=== PATIENT | female | born 1965 | race Caucasian/White ===

== ENCOUNTER 2017-07-01 06:38 | Emergency (ER) | payer OTHER ==
[~2017-07-01] VITALS: Ht 160 cm; Wt 65.0 kg
[~2017-07-01 06:38] MED LIST: CLON0.5T PO; LEVO100T5 PO
[2017-07-01 06:41] VITALS: BP 116/77
[2017-07-01] MEDS ORDERED: METOCLOPRAMIDE 5 MG/ML, 2ML ONE (07:07)
[2017-07-01] MEDS ORDERED: HYDROmorphone 2 MG/ML, 1ML ONE (07:07)
[2017-07-01] MEDS ORDERED: HYDROcodone/APAP 5/325 TABLET ONE (07:27)
[2017-07-01] MEDS ORDERED: METHOCARBAMOL 750 MG TABLET ONE (07:27)
[2017-07-01] MEDS ORDERED: KETOROLAC 30 MG/1 ML ONE (07:27)
[2017-07-01] MEDS ORDERED: METHOCARBAMOL 750 MG TABLET PO ONE (07:30)
[2017-07-01] MEDS ORDERED: KETOROLAC 30 MG/1 ML IM ONE (07:30)
[2017-07-01] MEDS ORDERED: HYDROcodone/APAP 5/325 TABLET PO ONE (07:30)
== END 2017-07-01 08:44 | disposition home or self-care (01) ==
LOC: ED 08:05
DX: M51.36 Other intervertebral disc degeneration, lumbar region (principal); M54.42 Lumbago with sciatica, left side; G89.29 Other chronic pain; M54.5 Low back pain; F17.210 Nicotine dependence, cigarettes, uncomplicated; E03.9 Hypothyroidism, unspecified
CPT/HCPCS: 72110; 96372; 99284; J1885

== ENCOUNTER 2017-10-12 05:13 | Inpatient (IN) | payer OTHER ==
[2017-10-10 14:37] LABS: BASOPHILS # (AUTO) 0.02 x10^3/uL (0-0.1); BASOPHILS % (AUTO) 0 % (0-1); LYMPHOCYTES % (AUTO) 43 % (22-44); MD NO; NEUTROPHILS % (AUTO) 47 % (42-75)
[2017-10-10 14:43] LABS: INTERNATIONAL NORMALIZED RATIO 0.93 (0.93-1.1); PROTHROMBIN TIME 9.7 Seconds (9.6-11.5)
[2017-10-10 14:48] LABS: EOSINOPHILS # (AUTO) 0.06 x10^3/uL (0-0.4); EOSINOPHILS % (AUTO) 1 % (1-7); LYMPHOCYTES # (AUTO) 2.96 x10^3/uL (1-3.4); MEAN CORPUSCULAR HGB CONC 33.4 g/dL (32.4-35.8); MEAN CORPUSCULAR VOLUME 89.8 fL (80-100); MEAN PLATELET VOLUME 8.3 fL (7.4-10.4); MONOCYTES # (AUTO) 0.67 x10^3/uL (0.2-0.8); MONOCYTES % (AUTO) 10 % (2-9); NEUTROPHILS # (AUTO) 3.24 x10^3/uL (1.8-6.8); PLATELET COUNT 195 x10^3/uL (130-400); RED BLOOD COUNT 5.16 x10^6/uL (3.82-5.3); RED CELL DISTRIBUTION WIDTH 13.6 % (9.6-15.2)
[2017-10-10 14:54] LABS: ALBUMIN 4.2 g/dL (3.4-5.0); ANION GAP 7 mmol/L (5-15); CALCIUM 9.6 mg/dL (8.5-10.1); CHLORIDE 108 mmol/L (98-107)
[2017-10-10 14:57] LABS: ALANINE AMINOTRANSFERASE 23 U/L (12-78); ALKALINE PHOSPHATASE 86 U/L (45-117); BILIRUBIN,TOTAL 0.7 mg/dL (0.2-1.0); CREATININE 0.85 mg/dL (0.55-1.02)
[~2017-10-12] VITALS: Ht 160 cm; Wt 74.3 kg
[~2017-10-12 05:13] MED LIST changes: +ACET-1600 PO; +HYDR-3240 PO; +LEVO200T5 PO; +MULT-658 PO
[2017-10-12] MEDS ORDERED: HEPARIN 1,000 UNITS/ML, 30ML ONE (06:42)
[2017-10-12] MEDS ORDERED: KETAMINE 10 MG/ML, 20ML ONE (06:53)
[2017-10-12] MEDS ORDERED: MIDAZOLAM 1 MG/ML, 2ML ONE (06:53)
[2017-10-12] MEDS ORDERED: FENTANYL PF 250 MCG/5ML ONE (06:54)
[2017-10-12] MEDS ORDERED: PROPOFOL 150 ML ONE (06:56)
[2017-10-12] MEDS ORDERED: THROMBIN 20,000 UNIT VIAL TP ONE ×2 (06:58→08:14)
[2017-10-12] MEDS ORDERED: BACITRACIN OINT 500U/GM, 15 GM ONE (06:58)
[2017-10-12] MEDS ORDERED: BUPIVACAINE/PF 0.5% ONE (06:58)
[2017-10-12] MEDS ORDERED: BACITRACIN 50,000 UNIT ONE (06:59)
[2017-10-12] MEDS ORDERED: EPINEPHRINE 1 MG/ML, 1ML ONE (07:00)
[2017-10-12] MEDS ORDERED: REMIFENTANIL 2 MG ONE (07:23)
[2017-10-12] MEDS ORDERED: REMIFENTANIL 1 MG ONE (07:23)
[2017-10-12] MEDS ORDERED: DEXAMETHASONE 4 MG/ML, 1ML ONE (07:28)
[2017-10-12] MEDS ORDERED: ROCURONIUM 10 MG/ML,10ML ONE (07:28)
[2017-10-12] MEDS ORDERED: LIDOCAINE-MPF 1%, 5ML ONE (07:28)
[2017-10-12] MEDS ORDERED: CEFAZOLIN 1,000 MG ONE (07:28)
[2017-10-12] MEDS ORDERED: SUCCINYLCHOLINE 20 MG/ML, 10ML ONE (07:28)
[2017-10-12] MEDS ORDERED: BUPIVACAINE/PF-EPI 0.5% 1:200K INFIL ONE (08:13)
[2017-10-12] MEDS ORDERED: BACITRACIN 50,000 UNIT IM ONE (08:15)
[2017-10-12] MEDS ORDERED: OXYcodone 5 MG/5 ML ORAL.SOL UDC PO PRN (09:00)
[2017-10-12] MEDS ORDERED: ALBUTEROL SULFATE 2.5 MG/3 ML NPPB PRN (09:00)
[2017-10-12] MEDS ORDERED: morphine SULFATE 10 MG/ML, 1ML IV PRN (09:00)
[2017-10-12] MEDS ORDERED: ACETAMINOPHEN 325 MG TABLET PO PRN (09:00)
[2017-10-12] MEDS ORDERED: KETOROLAC 30 MG/1 ML IV PRN (09:00)
[2017-10-12] MEDS ORDERED: MEPERIDINE/PF 25MG/0.5ML IVPush PRN (09:00)
[2017-10-12] MEDS ORDERED: PROMETHAZINE 25 MG/ML, 1ML IV PRN (09:00)
[2017-10-12] MEDS ORDERED: METOCLOPRAMIDE 5 MG/ML, 2ML IV PRN (09:00)
[2017-10-12] MEDS ORDERED: DIAZEPAM 5 MG/ML, 2ML IVPush PRN (09:00)
[2017-10-12] MEDS ORDERED: FENTANYL PF 100 MCG/2ML ONE (10:42)
[2017-10-12] MEDS ORDERED: OXYcodone 5 MG/5 ML ORAL.SOL UDC ONE (10:43)
[2017-10-12] MEDS: FENTANYL PF 100 MCG/2ML IV PRN ×2 (11:00→11:20)
[2017-10-12] MEDS ORDERED: MORPHINE SULFATE 4 MG/ML, 1ML ONE (11:26)
[2017-10-12] MEDS ORDERED: LABETALOL 5MG/ML, 20ML IV PRN (13:00)
[2017-10-12] MEDS ORDERED: DIPHENHYDRAMINE 50 MG CAPSULE PO PRN (13:00)
[2017-10-12] MEDS ORDERED: DIPHENHYDRAMINE 50 MG/ML, 1ML IM PRN (13:00)
[2017-10-12] MEDS ORDERED: BISACODYL 10 MG SUPP PR PRN (13:00)
[2017-10-12] MEDS ORDERED: HYDROcodone/APAP 5/325 TABLET PO PRN (13:00)
[2017-10-12] MEDS ORDERED: METHOCARBAMOL 1,000 MG in DEXTROSE 5% 100 ML IV ONE (13:00)
[2017-10-12] MEDS ORDERED: PROMETHAZINE 25 MG/ML, 1ML IM PRN (13:00)
[2017-10-12] MEDS ORDERED: MAGNESIUM HYDROXIDE 8%, 30ML UDC PO PRN (13:00)
[2017-10-12] MEDS ORDERED: DIPHENHYDRAMINE 50 MG/ML, 1ML IVPush PRN (13:00)
[2017-10-12] MEDS ORDERED: ONDANSETRON 2MG/ML, 2ML IV PRN (13:00)
[2017-10-12] MEDS ORDERED: MORPHINE SULFATE 4 MG/ML, 1ML IV PRN (13:30)
[2017-10-12] MEDS: NS + 20MEQ KCL 1,000 ML IV SCH (15:01)
[2017-10-12] MEDS: CEFAZOLIN PMX 1GM/50ML 50 ML IVPB SCH (16:01)
[2017-10-12 16:30] VITALS: BP 121/78
[2017-10-12] MEDS ORDERED: ZOLPIDEM 5MG TABLET PO PRN (21:00)
[2017-10-12] MEDS: ONDANSETRON ODT 4 MG PO PRN (21:03)
[2017-10-12 21:11] VITALS: BP 101/68
[2017-10-12] MEDS: METHOCARBAMOL 750 MG in DEXTROSE 5% 100 ML IV SCH (23:09)
[2017-10-13] MEDS: CEFAZOLIN PMX 1GM/50ML 50 ML IVPB SCH
[2017-10-13 00:05] VITALS: BP 97/53
[2017-10-13] MEDS ORDERED: 0.9 % SODIUM CHLORIDE 10 ML VIAL IV ONE (01:00)
[2017-10-13] MEDS: NS + 20MEQ KCL 1,000 ML IV SCH ×2 (01:03→14:09)
[2017-10-13 01:31] LABS: ANION GAP 8 mmol/L (5-15); CALCIUM 8.2 mg/dL (8.5-10.1); CHLORIDE 111 mmol/L (98-107); CREATININE 0.63 mg/dL (0.55-1.02)
[2017-10-13 02:47] LABS: BASOPHILS # (AUTO) 0.04 x10^3/uL (0-0.1); BASOPHILS % (AUTO) 0 % (0-1); EOSINOPHILS % (AUTO) 0 % (1-7); LYMPHOCYTES # (AUTO) 1.03 x10^3/uL (1-3.4); LYMPHOCYTES % (AUTO) 11 % (22-44); MD NO; MEAN CORPUSCULAR HEMOGLOBIN 29.1 pg (27.0-34.8); MEAN CORPUSCULAR HGB CONC 32.6 g/dL (32.4-35.8); MEAN CORPUSCULAR VOLUME 89.3 fL (80-100); MEAN PLATELET VOLUME 8.2 fL (7.4-10.4); MONOCYTES # (AUTO) 0.74 x10^3/uL (0.2-0.8); MONOCYTES % (AUTO) 8 % (2-9); NEUTROPHILS # (AUTO) 8.03 x10^3/uL (1.8-6.8); NEUTROPHILS % (AUTO) 82 % (42-75); PLATELET COUNT 177 x10^3/uL (130-400); RED CELL DISTRIBUTION WIDTH 13.1 % (9.6-15.2)
[2017-10-13 03:47] VITALS: BP 100/64
[2017-10-13] MEDS: ONDANSETRON ODT 4 MG PO PRN (05:19)
[2017-10-13] MEDS: METHOCARBAMOL 750 MG in DEXTROSE 5% 100 ML IV SCH ×3 (07:15→23:02)
[2017-10-13 07:37] VITALS: BP 102/61
[2017-10-13] MEDS ORDERED: METOCLOPRAMIDE 5 MG/ML, 2ML IVPush PRN (09:00)
[2017-10-13] MEDS: CYCLOBENZAPRINE 10 MG TABLET PO PRN ×2 (09:22→16:54)
[2017-10-13] MEDS: SENNA/DOCUSATE TABLET PO SCH (09:23)
[2017-10-13] MEDS: OXYcodone/APAP 5/325MG TABLET PO PRN ×4 (12:37→22:21)
[2017-10-13 13:48] VITALS: BP 110/73
[2017-10-13 18:55] VITALS: BP_SYST 116; BP_SYST 123; BP_DIAS 75; BP_DIAS 80
[2017-10-14] MEDS: NS + 20MEQ KCL 1,000 ML IV SCH ×2 (00:30→20:00)
[2017-10-14] MEDS: OXYcodone/APAP 5/325MG TABLET PO PRN ×2 (02:32→13:29)
[2017-10-14 02:34] VITALS: BP 111/73
[2017-10-14] MEDS: CYCLOBENZAPRINE 10 MG TABLET PO PRN (05:38)
[2017-10-14 06:51] VITALS: BP 110/71
[2017-10-14] MEDS ORDERED: BISACODYL 10 MG SUPP PR ONE (08:00)
[2017-10-14] MEDS: SENNA/DOCUSATE TABLET PO SCH (09:39)
[2017-10-14] MEDS: METHOCARBAMOL 750 MG in DEXTROSE 5% 100 ML IV SCH ×2 (09:40→16:07)
[2017-10-14 13:50] VITALS: BP 108/68
[2017-10-14] MEDS: ENOXAPARIN 30 MG/0.3 ML SQ SCH (18:00)
[2017-10-14 20:18] VITALS: BP 115/69
[2017-10-14] MEDS: METHOCARBAMOL 750 MG TABLET PO SCH (20:59)
[2017-10-15] MEDS: OXYcodone/APAP 5/325MG TABLET PO PRN ×4 (00:14→14:49)
[2017-10-15 02:19] VITALS: BP 119/75
[2017-10-15] MEDS: METHOCARBAMOL 750 MG TABLET PO SCH ×2 (06:11→13:28)
[2017-10-15] MEDS: ENOXAPARIN 30 MG/0.3 ML SQ SCH (06:13)
[2017-10-15 06:45] VITALS: BP 118/72
[2017-10-15] MEDS: NS + 20MEQ KCL 1,000 ML IV SCH (07:25)
[2017-10-15] MEDS: SENNA/DOCUSATE TABLET PO SCH (10:10)
[2017-10-15 12:54] VITALS: BP 112/68
[2017-10-15] MEDS ORDERED: OXYC-307 PO (12:55)
[2017-10-15] MEDS ORDERED: METH750T87 PO (12:57)
[2017-10-15] MEDS ORDERED: CHOL500045 PO (12:58)
[2017-10-15] MEDS ORDERED: POLY17PO5 PO (12:58)
[2017-10-15 16:05] VITALS: BP 112/62
== END 2017-10-15 16:32 | disposition home or self-care (01) | DRG 455 ==
LOC: 4NOR 05:13 → DCLOUNGE 10-15 16:17
PROVIDERS: ADMIT Neurological Surgery; ATTEND Neurological Surgery
PROC: 0SG0071 Fusion of Lumbar Vertebral Joint with Autologous Tissue Substitute, Posterior Approach, Posterior Column, Open Approach (ICD-10-PCS; 2017-10-12)
PROC: 0SG30AJ Fusion of Lumbosacral Joint with Interbody Fusion Device, Posterior Approach, Anterior Column, Open Approach (ICD-10-PCS; 2017-10-12)
PROC: 0SB20ZZ Excision of Lumbar Vertebral Disc, Open Approach (ICD-10-PCS; 2017-10-12)
PROC: 01NB0ZZ Release Lumbar Nerve, Open Approach (ICD-10-PCS; 2017-10-12)
PROC: 0SG3071 Fusion of Lumbosacral Joint with Autologous Tissue Substitute, Posterior Approach, Posterior Column, Open Approach (ICD-10-PCS; 2017-10-12)
PROC: 0SG00A0 Fusion of Lumbar Vertebral Joint with Interbody Fusion Device, Anterior Approach, Anterior Column, Open Approach (ICD-10-PCS; principal; 2017-10-12 07:30)
DX: M43.16 Spondylolisthesis, lumbar region (principal); E05.00 Thyrotoxicosis with diffuse goiter without thyrotoxic crisis or storm; F17.200 Nicotine dependence, unspecified, uncomplicated; G89.4 Chronic pain syndrome; J44.9 Chronic obstructive pulmonary disease, unspecified; M48.061 Spinal stenosis, lumbar region without neurogenic claudication; M51.16 Intervertebral disc disorders with radiculopathy, lumbar region; M51.37 Other intervertebral disc degeneration, lumbosacral region; Z88.6 Allergy status to analgesic agent
CPT/HCPCS: 36415; 71046; 72100; 74018; 80048; 80053; 85025; 85610; 85730; 93005; C1713; C1776; J0171; J0690; J1100; J1644; J1650; J2250; J2270; J2704; J3010; J3480; J3490; Q0162; J0330; J1200; J2800

== ENCOUNTER 2018-01-31 10:45 | Emergency (ER) | payer OTHER ==
[~2018-01-31] VITALS: Ht 160 cm; Wt 67.5 kg
[~2018-01-31 10:45] MED LIST changes: +CHOL500045 PO; +METH750T87 PO; +OXYC-307 PO; +POLY17PO5 PO
[2018-01-31 10:51] VITALS: BP 127/81
== END 2018-01-31 12:16 | disposition left against medical advice (07) ==
LOC: ED 12:10
DX: Z53.21 Procedure and treatment not carried out due to patient leaving prior to being seen by health care provider (principal)

== ENCOUNTER 2018-09-06 00:05 | Emergency (ER) | payer SELFPAY ==
[~2018-09-06] VITALS: Ht 160 cm; Wt 75.3 kg
[2018-09-06 00:10] VITALS: BP 127/80
[2018-09-06] MEDS ORDERED: ALBUTEROL/IPRATROPIUM 2.5MG/0.5MG, 3 ML NPPB ONE (00:30)
--- NOTE | 2018-09-06 01:23 | NUR ---
PT ELOPED FROM [facility]
== END 2018-09-06 01:25 | disposition left against medical advice (07) ==
LOC: ED 01:19
DX: R05 Cough (principal); F17.210 Nicotine dependence, cigarettes, uncomplicated
CPT/HCPCS: 71046; 99283

== ENCOUNTER 2018-09-07 21:33 | Emergency (ER) | payer SELFPAY ==
[~2018-09-07] VITALS: Ht 160 cm; Wt 74.3 kg
[2018-09-07] MEDS ORDERED: ALBUTEROL/IPRATROPIUM 2.5MG/0.5MG, 3 ML NPPB ONE (22:30)
[2018-09-07] MEDS ORDERED: ALBUTEROL/IPRATROPIUM 2.5MG/0.5MG, 3 ML ONE (22:38)
[2018-09-07 23:04] VITALS: BP 127/75
== END 2018-09-07 23:19 | disposition home or self-care (01) ==
LOC: ED 22:43
DX: J18.9 Pneumonia, unspecified organism (principal); R05 Cough; E03.9 Hypothyroidism, unspecified
CPT/HCPCS: 93005; 94640; 99283; J7512; J7620

== ENCOUNTER 2020-02-11 02:09 | Emergency (ER) | payer MEDICAID ==
[~2020-02-11] VITALS: Ht 160 cm; Wt 74.0 kg
[2020-02-11] MEDS ORDERED: ALBU6.7H8 INH (02:27)
--- NOTE | 2020-02-11 02:33 | NUR ---
PT CAME IN TO ED TONIGHT DUE TO SOB AND DIFFICULTLY BREATHING. PT HAS HX OF COPD AND STATES SHE IS ANXIOUS WITH A NUMBER LIFE CHANGES AND CHALLENGES. PT APPEARS VERY ANXIOUS NAD IS TEARY. PT STATES IT FEELS LIKE THERE AN ELEPHANT ON MY CHEST. PT STATES "OH I HOPE I DONT HAVE SOME SORT OF CANCER GOING ON IN THERE". PT PLACED ON SPO2/BP MONITORING. EKG DONE. GIVEN WARM BLANKETS FOR COMFORT. WCTM.
--- NOTE | 2020-02-11 03:22 | NUR ---
pt resting on gurney, NAD, still anxious but appears more comfortable than earlier. lights dimmed for comfort, waiting for ERP eval. WCTM.
[2020-02-11] MEDS ORDERED: IBUPROFEN 600 MG TABLET ONE (03:29)
[2020-02-11] MEDS ORDERED: IBUPROFEN 200 MG TABLET PO ONE (03:30)
[2020-02-11 03:32] VITALS: BP 112/73
--- NOTE | 2020-02-11 03:59 | NUR ---
Patient given discharge instructions and they have confirmed that they understand the instructions. Patient WHEELED TO DC BUT IS AMBULATORY WITH A STEADY GAIT. NAD. VSS. DENIES ADDITIONAL NEEDS AT THIS TIME. NO BELONGINGS LEFT IN ROOM AT DC.
== END 2020-02-11 04:01 | disposition home or self-care (01) ==
LOC: ED 04:00
DX: G89.29 Other chronic pain (principal); M25.511 Pain in right shoulder; F41.1 Generalized anxiety disorder; I51.7 Cardiomegaly; R00.0 Tachycardia, unspecified; E03.9 Hypothyroidism, unspecified; F17.200 Nicotine dependence, unspecified, uncomplicated; Z72.9 Problem related to lifestyle, unspecified; Z90.89 Acquired absence of other organs; Z98.51 Tubal ligation status
CPT/HCPCS: 93005; 99283

== ENCOUNTER 2020-02-24 12:14 | Emergency (ER) | payer MEDICAID ==
[~2020-02-24] VITALS: Ht 160 cm; Wt 75.0 kg
[~2020-02-24 12:14] MED LIST changes: +ALBU6.7H8 INH
--- NOTE | 2020-02-24 12:58 | NUR ---
PT BIBA, SOB AND ANXIETY X 1 MONTH, COUGH X 2 MONTHS, RT SIDED CP AT NIGHT WHEN TAKING A DEEP BREATH X 4 MONTHS. PT RAN OUT OF PORTABLE OXYGEN AND IS "STUCK AT HOME", ATTACHED TO CONCENTRATOR WHICH HAS INCREASED ANXIETY. PT WEARS 2.5 L OXYGEN AT BASELINE FOR HX COPD. PT IS RESTING ON GURNEY, RESPS EVEN AND UNLABORED, PT ABLE TO SPEAK IN FULL SENTENCES WITHOUT DIFFICULTY. EKG TAKEN ON ARRIVAL BY EDT. PT ATTACHED TO ALL MONITORS. CALL LIGHT IN REACH. AWAITING PROVIDER AND ORDERS.
--- NOTE | 2020-02-24 13:18 | NUR ---
pt seen by MICHELLE Waldrop, awaiting orders at this time.
--- NOTE | 2020-02-24 13:55 | NUR ---
PT ASSISTED TO BATHROOM, NOW BACK IN BED. ALL MONITORS IN PLACE. PT A&O, RESPS EVEN AND UNLABORED. PILLOW AND BLANKET PROVIDED. PT SYMPTOLOGY DISCUSSED WITH MICHELLE DE LA VEGA, PT STATES SHE IS ONLY SEEKING PRESCRIPTION TO OBTAIN PORTABLE OXYGEN. AWAITING PRESCRIPTION AND DC PAPERWORK FROM PROVIDER.
--- NOTE | 2020-02-24 15:14 | NUR ---
report given to JAMESON Blanchard who is assuming care. awaiting oxygen prescription and set up with company prior to discharge.
--- NOTE | 2020-02-24 15:42 | NUR ---
THROUGHPUT RN::ORDER FOR O2 WITH FACESHEET FAXED TO [facility] AT [id number]. [facility] ARRANGED AT THIS TIME. ETA FOR PT SYRUPER IS 1800, THIS WAS THE SOONEST TIME AVAILABLE.
[2020-02-24] MEDS ORDERED: ALBUTEROL SULFATE 2.5 MG/3 ML ONE (16:08)
--- NOTE | 2020-02-24 16:09 | NUR ---
WATER AND COFFEE GIVEN TO PT, UP TO BATHROOM, WHEEZING ON RETURN ALB ORDER RECEIVED WILL ADMINISTER TO PT
[2020-02-24] MEDS ORDERED: ALBUTEROL SULFATE 2.5 MG/3 ML NPPB ONE (16:30)
--- NOTE | 2020-02-24 16:43 | NUR ---
improved after neb treatment
--- NOTE | 2020-02-24 17:45 | NUR ---
OXYGEN TANK DROPPED OFF FROM [facility] WITH DIRECTIONS GIVEN THAT PT SHOULD CALL WHEN SHE GETS HOME SO THAT ADDITIONAL OXYGEN CAN BE DELIVERED
[2020-02-24 18:09] VITALS: BP 141/72
== END 2020-02-24 18:10 | disposition home or self-care (01) ==
LOC: ED 13:54
DX: J44.9 Chronic obstructive pulmonary disease, unspecified (principal); Z76.0 Encounter for issue of repeat prescription; R00.0 Tachycardia, unspecified; E03.9 Hypothyroidism, unspecified; Z87.891 Personal history of nicotine dependence
CPT/HCPCS: 93005; 94640; 99285; J7613

== ENCOUNTER 2020-05-25 15:19 | Emergency (ER) | payer MEDICAID ==
[~2020-05-25] VITALS: Ht 160 cm; Wt 68.2 kg
[2020-05-25] MEDS ORDERED: ONDANSETRON 2MG/ML, 2ML IV ONE (15:30)
[2020-05-25] MEDS ORDERED: SODIUM CHLORIDE FLUSH 10ML SYR IVF ONE (15:30)
[2020-05-25] MEDS ORDERED: SODIUM CHLORIDE 0.9% 1,000ML IVBOLUS ONE (15:30)
[2020-05-25] MEDS ORDERED: KETOROLAC 30 MG/1 ML IVPush ONE (15:30)
[2020-05-25] MEDS ORDERED: ALBUTEROL/IPRATROPIUM 2.5MG/0.5MG, 3 ML NPPB ONE (15:30)
--- NOTE | 2020-05-25 15:37 | NUR ---
PT BIB AMBULANCE C/O INCREASED SOB AND FATIGUE. PT TESTED POSITIVE FOR COVID ON 05/19. PT STATES SHE WAS SEEN AT [facility], BUT HAS NOT IMPROVED SINCE. EMS STATES PT HAS BEEN COUGHING WITH THEM AND WORRELL BLOOD IN HER SPUTUM. PT ALSO HAS CHEST PAIN, HEADACHE, AND NAUSEA.
[2020-05-25] MEDS ORDERED: KETOROLAC 30 MG/1 ML ONE (15:40)
[2020-05-25] MEDS ORDERED: ONDANSETRON 2MG/ML, 2ML ONE (15:40)
[2020-05-25 15:44] LABS: BASOPHILS % (AUTO) 1 % (0-1); EOSINOPHILS % (AUTO) 1 % (1-7); LYMPHOCYTES % (AUTO) 24 % (22-44); MEAN CORPUSCULAR HEMOGLOBIN 28.3 pg (27.0-34.8); MEAN CORPUSCULAR HGB CONC 32.5 g/dL (32.4-35.8); MEAN PLATELET VOLUME 8.4 fL (7.4-10.4); MONOCYTES % (AUTO) 8 % (2-9); NEUTROPHILS % (AUTO) 67 % (42-75); PLATELET COUNT 196 x10^3/uL (130-400); RED BLOOD COUNT 4.66 x10^6/uL (3.82-5.3); RED CELL DISTRIBUTION WIDTH 15.7 % (9.6-15.2)
[2020-05-25 15:48] LABS: MD NO
[2020-05-25 15:57] LABS: CHLORIDE 105 mmol/L (98-107)
[2020-05-25 15:58] LABS: ALANINE AMINOTRANSFERASE 27 U/L (12-78); ALBUMIN 2.5 g/dL (3.4-5.0); ANION GAP 6 mmol/L (5-15); CALCIUM 8.3 mg/dL (8.5-10.1); CREATININE 0.63 mg/dL (0.55-1.02)
[2020-05-25 16:00] LABS: ALKALINE PHOSPHATASE 91 U/L (45-117); TOTAL PROTEIN 6.3 g/dL (6.4-8.2)
[2020-05-25] MEDS ORDERED: ALBUTEROL/IPRATROPIUM 2.5MG/0.5MG, 3 ML ONE (16:17)
[2020-05-25] MEDS ORDERED: DEXAMETHASONE 4 MG TABLET ONE (16:17)
[2020-05-25] MEDS ORDERED: DEXAMETHASONE 4 MG TABLET PO ONE (16:30)
[2020-05-25 18:01] VITALS: BP 108/64
== END 2020-05-25 18:15 | disposition home or self-care (01) ==
LOC: ED 16:17
DX: U07.1 COVID-19 (principal); B34.9 Viral infection, unspecified; R06.02 Shortness of breath; J06.9 Acute upper respiratory infection, unspecified; R05 Cough; R09.81 Nasal congestion; R50.9 Fever, unspecified; R11.2 Nausea with vomiting, unspecified; R51.9 Headache, unspecified; M79.10 Myalgia, unspecified site; Z87.891 Personal history of nicotine dependence
CPT/HCPCS: 36415; 71045; 80053; 85025; 93005; 94640; 96361; 96374; 96375; 99285; J1885; J2405; J7030

== ENCOUNTER 2020-06-21 14:47 | Emergency (ER) | payer MEDICAID ==
[~2020-06-21] VITALS: Ht 167.6 cm; Wt 70.0 kg
[2020-06-21] MEDS ORDERED: ONDANSETRON 2MG/ML, 2ML ONE (15:23)
[2020-06-21] MEDS ORDERED: PANTOPRAZOLE 40 MG IV ONE (15:23)
[2020-06-21] MEDS ORDERED: ONDANSETRON 2MG/ML, 2ML IVPush ONE (15:30)
[2020-06-21] MEDS ORDERED: SODIUM CHLORIDE 0.9% 1,000ML IVBOLUS ONE (15:30)
[2020-06-21] MEDS ORDERED: PANTOPRAZOLE 40 MG IV IVPush ONE (15:30)
[2020-06-21 15:59] LABS: BASOPHILS % (AUTO) 0 % (0-1); EOSINOPHILS % (AUTO) 0 % (1-7); LYMPHOCYTES % (AUTO) 19 % (22-44); MEAN CORPUSCULAR HEMOGLOBIN 28.3 pg (27.0-34.8); MEAN CORPUSCULAR HGB CONC 32.1 g/dL (32.4-35.8); MEAN PLATELET VOLUME 8.4 fL (7.4-10.4); MONOCYTES % (AUTO) 7 % (2-9); NEUTROPHILS % (AUTO) 73 % (42-75); PLATELET COUNT 234 x10^3/uL (130-400); RED BLOOD COUNT 3.81 x10^6/uL (3.82-5.3); RED CELL DISTRIBUTION WIDTH 19.1 % (9.6-15.2)
[2020-06-21 16:05] LABS: ALANINE AMINOTRANSFERASE 20 U/L (12-78); ANION GAP 5 mmol/L (5-15); CALCIUM 8.5 mg/dL (8.5-10.1); CHLORIDE 109 mmol/L (98-107); CREATININE 0.63 mg/dL (0.55-1.02)
[2020-06-21 16:08] LABS: MD NO
[2020-06-21 16:12] LABS: ALKALINE PHOSPHATASE 102 U/L (45-117); BILIRUBIN,TOTAL 1.7 mg/dL (0.2-1.0); TOTAL PROTEIN 6.9 g/dL (6.4-8.2)
[2020-06-21] MEDS ORDERED: KETOROLAC 30 MG/1 ML IVPush ONE (16:30)
[2020-06-21] MEDS ORDERED: KETOROLAC 30 MG/1 ML ONE (16:47)
--- NOTE | 2020-06-21 17:11 | NUR ---
WITH REASSESSMENT PAIN/NAUSE IMPROVED. TOLERATING PO WATER/SALTINES
--- NOTE | 2020-06-21 18:04 | NUR ---
ct called to expedite exam
--- NOTE | 2020-06-21 18:20 | NUR ---
to ct scan
[2020-06-21] MEDS ORDERED: OMNIPAQUE 350 MG/ML, 75ML BOTTLE ONE (18:42)
--- NOTE | 2020-06-21 18:54 | NUR ---
REPORT RECIEVED FROM JAMESON CAPPS
[2020-06-21] MEDS ORDERED: ALBUTEROL/IPRATROPIUM 2.5MG/0.5MG, 3 ML NEB ONE (19:00)
--- NOTE | 2020-06-21 19:00 | NUR ---
REPORT TO JAYLEN BARBA
[2020-06-21] MEDS ORDERED: ALBUTEROL/IPRATROPIUM 2.5MG/0.5MG, 3 ML ONE (19:14)
--- NOTE | 2020-06-21 19:21 | NUR ---
pt medicated for pain per emar, currently doing neb tx. pt very anxious and upset about condition, able to be consoled.
[2020-06-21] MEDS ORDERED: DEXAMETHASONE 4 MG/ML, 1ML IVPush ONE (19:30)
[2020-06-21] MEDS ORDERED: DEXAMETHASONE 4 MG/ML, 5ML ONE (19:42)
[2020-06-21 20:14] VITALS: BP 122/89
== END 2020-06-21 20:17 | disposition home or self-care (01) ==
LOC: ED 16:14
DX: J96.11 Chronic respiratory failure with hypoxia (principal); J12.9 Viral pneumonia, unspecified; B34.9 Viral infection, unspecified; K29.00 Acute gastritis without bleeding; R50.9 Fever, unspecified; R10.84 Generalized abdominal pain; R05 Cough; M79.10 Myalgia, unspecified site; R53.1 Weakness; J44.9 Chronic obstructive pulmonary disease, unspecified; E03.9 Hypothyroidism, unspecified; Z88.9 Allergy status to unspecified drugs, medicaments and biological substances; Z90.89 Acquired absence of other organs; Z87.891 Personal history of nicotine dependence
CPT/HCPCS: 36415; 71045; 71260; 80053; 82728; 83605; 83615; 84145; 85025; 86140; 87040; 93005; 94640; 96361; 96374; 96375; 99285; C9113; J1100; J1885; J2405; J7030; Q9967

== ENCOUNTER → 2020-10-07 | Outpatient (CLI) | payer MEDICAID ==
[~2020-10-07] MED LIST changes: +HYDR-2214 PO; -HYDR-3240 PO; -OXYC-307 PO; +OXYC-380 PO
== END | disposition home or self-care (01) ==
LOC: RAD 11:21
PROVIDERS: ATTEND Physician Assistant
DX: R10.13 Epigastric pain (principal); D50.9 Iron deficiency anemia, unspecified; K63.5 Polyp of colon; R10.11 Right upper quadrant pain
CPT/HCPCS: 76705

== ENCOUNTER 2020-12-01 14:05 | Inpatient (IN) | payer MEDICAID ==
[~2020-12-01] VITALS: Ht 160 cm; Wt 70.8 kg
--- NOTE | 2020-12-01 14:55 | NUR ---
BIBA FOR DIFFICULTY BREATHING FOR 4-5 DAYS. PER EMS PT WAS FOUND TO BE IN TRI POD POSITION WITH PURSED LIPS ON BASELINE 3 L O2 WITH WHEEZING IN BILAT BASES AND DIMINSHED LUNG SOUNDS IN BILAT UPPER LOBES. EMS GAVE 1 ALBUTEROL TX, 2 DUO NEB TX, 125 MG PREDNISONE IV, AND 200 CC OF NS. PT WITH HX OF COPD. UPON ARRIVAL TO ED LUNG SOUNDS ARE CLEAR IN ALL LUNG HUBER. PT STATES " I FEEL SO MUCH BETTER, I WISH I COULD BREATH LIKE THIS EVERY DAY BUT I AM SO TIRED NOW". PT REQUESTING TO LAY DOWN.
[2020-12-01] MEDS ORDERED: ALBUTEROL SULFATE 2.5 MG/3 ML NPPB ONE (15:30)
[2020-12-01] MEDS ORDERED: LORazepam 2 MG/ML, 1ML IV ONE (15:30)
[2020-12-01] MEDS ORDERED: methylPREDNISolone SOD SUCC 125 MG/2 ML IV ONE (15:30)
[2020-12-01] MEDS ORDERED: SODIUM CHLORIDE FLUSH 10ML SYR IVF ONE (15:30)
[2020-12-01 15:49] LABS: BASOPHILS % (AUTO) 2 % (0-1); EOSINOPHILS % (AUTO) 0 % (1-7); LYMPHOCYTES % (AUTO) 12 % (22-44); MEAN CORPUSCULAR HEMOGLOBIN 27.4 pg (27.0-34.8); MEAN CORPUSCULAR HGB CONC 31.7 g/dL (32.4-35.8); MONOCYTES % (AUTO) 3 % (2-9); NEUTROPHILS % (AUTO) 84 % (42-75); PLATELET COUNT 165 x10^3/uL (130-400); RED BLOOD COUNT 4.95 x10^6/uL (3.82-5.3); RED CELL DISTRIBUTION WIDTH 18.6 % (9.6-15.2)
[2020-12-01 15:58] LABS: ALBUMIN 3.1 g/dL (3.4-5.0); ANION GAP 9 mmol/L (5-15); CALCIUM 9.3 mg/dL (8.5-10.1); CHLORIDE 114 mmol/L (98-107); CREATININE 0.68 mg/dL (0.55-1.02)
[2020-12-01 16:02] LABS: TROPONIN I < 0.015 ng/mL (0.000-0.045)
[2020-12-01] MEDS ORDERED: LORazepam 2 MG/ML, 1ML ONE (16:07)
[2020-12-01] MEDS ORDERED: ALBUTEROL SULFATE 2.5 MG/3 ML ONE (16:07)
--- NOTE | 2020-12-01 16:23 | NUR ---
PT WITH HIGH ANXIETY. UPSET IN ROOM ABOUT NOT GETTING RIGHT INHALER FROM PCP. ATIVAN GIVEN, PT STATES SHE IS FEELING BETTER BUT PT STILL UPSET.
[2020-12-01] MEDS ORDERED: FUROSEMIDE 40 MG/4 ML IV ONE (17:00)
[2020-12-01] MEDS ORDERED: FUROSEMIDE 40 MG/4 ML ONE (17:20)
[2020-12-01] MEDS ORDERED: ACETAMINOPHEN 325 MG TABLET PO PRN (17:30)
[2020-12-01] MEDS ORDERED: ONDANSETRON 2MG/ML, 2ML IVPush PRN (17:30)
[2020-12-01] MEDS ORDERED: ONDANSETRON ODT 4 MG PO PRN (17:30)
--- NOTE | 2020-12-01 18:02 | NUR ---
REPORT GIVEN TO BRI BARBA
--- NOTE | 2020-12-01 18:11 | NUR ---
PT UP TO RESTROOM MULTIPLE TIMES SINCE LASIX, PT ALSO STATING "I FEEL SO MUCH BETTER, THE PRESSURE IS GONE". PT ALSO GIVEN DINNER TRAY
[2020-12-01 18:37] VITALS: BP 143/74
[2020-12-01] MEDS: ENOXAPARIN 40 MG/0.4 ML SQ SCH (18:43)
[2020-12-01] MEDS: CARVEDILOL 3.125 MG TABLET PO SCH (18:43)
[2020-12-01] MEDS ORDERED: ALBUTEROL SULFATE 2.5 MG/3 ML NPPB SCH (20:30)
[2020-12-01 21:04] VITALS: BP 120/77
[2020-12-01] MEDS ORDERED: OMEP20CA20 PO (21:20)
[2020-12-01] MEDS ORDERED: GABA300C PO (21:21)
[2020-12-01] MEDS: NICOTINE 21 MG/24 HR PATCH.TD24 TD SCH (22:27)
[2020-12-02 02:33] VITALS: BP 115/67
[2020-12-02] MEDS: CARVEDILOL 3.125 MG TABLET PO SCH ×2 (06:29→17:34)
[2020-12-02 07:25] LABS: BASOPHILS % (AUTO) 1 % (0-1); EOSINOPHILS % (AUTO) 0 % (1-7); LYMPHOCYTES % (AUTO) 12 % (22-44); MEAN CORPUSCULAR HEMOGLOBIN 27.7 pg (27.0-34.8); MEAN CORPUSCULAR HGB CONC 32.4 g/dL (32.4-35.8); MEAN PLATELET VOLUME 8.4 fL (7.4-10.4); MONOCYTES % (AUTO) 6 % (2-9); NEUTROPHILS % (AUTO) 81 % (42-75); PLATELET COUNT 166 x10^3/uL (130-400); RED BLOOD COUNT 4.57 x10^6/uL (3.82-5.3); RED CELL DISTRIBUTION WIDTH 17.8 % (9.6-15.2)
[2020-12-02 07:33] LABS: ANION GAP 7 mmol/L (5-15); CALCIUM 8.9 mg/dL (8.5-10.1); CHLORIDE 107 mmol/L (98-107); CREATININE 0.68 mg/dL (0.55-1.02)
[2020-12-02 07:38] VITALS: BP 106/70
[2020-12-02] MEDS: LEVOTHYROXINE 200 MCG TABLET PO SCH (08:55)
[2020-12-02] MEDS ORDERED: NITROGLYCERIN 0.4 MG BOTTLE (25 TABS) SL ONE (12:05)
[2020-12-02 12:06] VITALS: BP 130/88
[2020-12-02 12:13] VITALS: BP 115/72
[2020-12-02] MEDS ORDERED: FUROSEMIDE 20 MG/2 ML IV ONE (12:30)
[2020-12-02] MEDS ORDERED: NITROGLYCERIN 0.4 MG/SPRAY SL PRN (12:30)
[2020-12-02] MEDS ORDERED: NITROGLYCERIN 0.4 MG BOTTLE (25 TABS) SL PRN (12:30)
[2020-12-02 15:00] VITALS: BP 105/67
[2020-12-02] MEDS: ENOXAPARIN 40 MG/0.4 ML SQ SCH (17:34)
[2020-12-02] MEDS ORDERED: OMEPRAZOLE 20 MG CAPSULE.DR PO ONE (18:00)
[2020-12-02] MEDS ORDERED: ALBUTEROL SULFATE 2.5 MG/3 ML NPPB PRN (18:30)
[2020-12-02 20:00] VITALS: BP 105/67
[2020-12-02] MEDS: LACTOBACILLUS CHEW TABLET PO SCH (21:41)
[2020-12-02] MEDS: GABAPENTIN 300 MG CAPSULE PO SCH (21:41)
[2020-12-02] MEDS: NICOTINE 21 MG/24 HR PATCH.TD24 TD SCH (21:41)
[2020-12-03 03:59] VITALS: BP 104/73
[2020-12-03] MEDS: LEVOTHYROXINE 200 MCG TABLET PO SCH (05:39)
[2020-12-03] MEDS: OMEPRAZOLE 20 MG CAPSULE.DR PO SCH (05:40)
[2020-12-03] MEDS: CARVEDILOL 3.125 MG TABLET PO SCH (05:40)
[2020-12-03] MEDS: ALBUTEROL SULFATE 2.5 MG/3 ML NPPB SCH ×4 (07:47→20:20)
[2020-12-03] MEDS: BUDESONIDE 0.5 MG/2 ML INHA INH SCH ×2 (07:47→20:20)
[2020-12-03 08:33] VITALS: BP 105/70
[2020-12-03] MEDS: LACTOBACILLUS CHEW TABLET PO SCH ×3 (08:36→21:09)
[2020-12-03] MEDS: GABAPENTIN 300 MG CAPSULE PO SCH ×2 (08:36→21:10)
[2020-12-03] MEDS: FUROSEMIDE 20 MG TABLET PO SCH (09:04)
[2020-12-03 11:05] LABS: TROPONIN I < 0.015 ng/mL (0.000-0.045)
[2020-12-03 16:31] VITALS: BP 146/88
[2020-12-03] MEDS: CARVEDILOL 6.25 MG TABLET PO SCH (17:17)
[2020-12-03] MEDS: ENOXAPARIN 40 MG/0.4 ML SQ SCH (17:18)
[2020-12-03 21:00] VITALS: BP 123/79
[2020-12-03] MEDS: NICOTINE 21 MG/24 HR PATCH.TD24 TD SCH (21:13)
[2020-12-04 02:15] VITALS: BP 109/65
[2020-12-04] MEDS: LEVOTHYROXINE 200 MCG TABLET PO SCH (05:58)
[2020-12-04] MEDS: CARVEDILOL 6.25 MG TABLET PO SCH ×2 (05:58→17:42)
[2020-12-04] MEDS: OMEPRAZOLE 20 MG CAPSULE.DR PO SCH (05:58)
[2020-12-04 06:44] VITALS: BP 143/80
[2020-12-04] MEDS: ALBUTEROL SULFATE 2.5 MG/3 ML NPPB SCH ×4 (06:47→20:00)
[2020-12-04] MEDS: BUDESONIDE 0.5 MG/2 ML INHA INH SCH ×2 (06:48→20:19)
[2020-12-04] MEDS: FUROSEMIDE 20 MG TABLET PO SCH (08:26)
[2020-12-04] MEDS: LACTOBACILLUS CHEW TABLET PO SCH ×3 (08:26→21:59)
[2020-12-04] MEDS: GABAPENTIN 300 MG CAPSULE PO SCH ×3 (08:26→21:59)
[2020-12-04] MEDS ORDERED: REGADENOSON 0.4 MG/5 ML SYRINGE ONE (09:22)
[2020-12-04 13:40] VITALS: BP 113/76
[2020-12-04] MEDS: ENOXAPARIN 40 MG/0.4 ML SQ SCH (17:42)
[2020-12-04 19:11] VITALS: BP 101/68
[2020-12-04] MEDS ORDERED: SENNA/DOCUSATE TABLET PO SCH (21:00)
[2020-12-04] MEDS: NICOTINE 21 MG/24 HR PATCH.TD24 TD SCH (22:00)
[2020-12-05 01:10] VITALS: BP 100/66
[2020-12-05] MEDS ORDERED: LORazepam 2 MG/ML, 1ML IVPush ONE ×2 (04:30)
[2020-12-05] MEDS ORDERED: LORazepam 2 MG/ML, 1ML IVPush PRN (05:00)
[2020-12-05] MEDS: CARVEDILOL 6.25 MG TABLET PO SCH ×2 (06:24→17:15)
[2020-12-05] MEDS: OMEPRAZOLE 20 MG CAPSULE.DR PO SCH (06:24)
[2020-12-05] MEDS: LEVOTHYROXINE 200 MCG TABLET PO SCH (06:24)
[2020-12-05 07:02] VITALS: BP 100/66
[2020-12-05] MEDS: ALBUTEROL SULFATE 2.5 MG/3 ML NPPB SCH ×4 (07:23→18:50)
[2020-12-05] MEDS: BUDESONIDE 0.5 MG/2 ML INHA INH SCH ×2 (07:23→18:50)
[2020-12-05] MEDS: LACTOBACILLUS CHEW TABLET PO SCH ×2 (08:20→17:15)
[2020-12-05] MEDS: FUROSEMIDE 20 MG TABLET PO SCH (08:20)
[2020-12-05] MEDS: GABAPENTIN 300 MG CAPSULE PO SCH (08:20)
[2020-12-05] MEDS ORDERED: ASPIRIN 325 MG TABLET PO SCH (08:30)
[2020-12-05 12:47] VITALS: BP 106/72
[2020-12-05] MEDS ORDERED: LIDOCAINE 2%, 20ML ONE (16:05)
[2020-12-05] MEDS ORDERED: VERAPAMIL 2.5 MG/ML, 2ML ONE (16:05)
[2020-12-05] MEDS ORDERED: MIDAZOLAM 1 MG/ML, 5ML ONE (16:05)
[2020-12-05] MEDS ORDERED: FENTANYL PF 100 MCG/2ML ONE (16:05)
[2020-12-05] MEDS ORDERED: BIVALIRUDIN 250 MG ONE (16:05)
[2020-12-05] MEDS ORDERED: HEPARIN 1,000 UNITS/ML, 10ML ONE (16:05)
[2020-12-05] MEDS ORDERED: FUROSEMIDE 40 MG/4 ML ONE (16:30)
[2020-12-05] MEDS: ENOXAPARIN 40 MG/0.4 ML SQ SCH (17:08)
[2020-12-05] MEDS ORDERED: ATORVASTATIN 40 MG TABLET PO SCH (21:00)
[2020-12-05] MEDS ORDERED: FUROSEMIDE 40 MG/4 ML IV ONE (22:00)
== END 2020-12-05 20:17 | disposition left against medical advice (07) | DRG 192 ==
LOC: ED 14:57 → EDIP 17:01 → 5SO 18:21
PROVIDERS: ADMIT Family Medicine; ATTEND Internal Medicine
PROC: 4A023N7 Measurement of Cardiac Sampling and Pressure, Left Heart, Percutaneous Approach (ICD-10-PCS; principal; 2020-12-05)
PROC: B2111ZZ Fluoroscopy of Multiple Coronary Arteries using Low Osmolar Contrast (ICD-10-PCS; 2020-12-05)
PROC: B2151ZZ Fluoroscopy of Left Heart using Low Osmolar Contrast (ICD-10-PCS; 2020-12-05)
DX: I50.23 Acute on chronic systolic (congestive) heart failure (principal); J96.20 Acute and chronic respiratory failure, unspecified whether with hypoxia or hypercapnia; I42.8 Other cardiomyopathies; E03.9 Hypothyroidism, unspecified; E66.9 Obesity, unspecified; F32.9 Major depressive disorder, single episode, unspecified; F41.9 Anxiety disorder, unspecified; Z20.822 Contact with and (suspected) exposure to COVID-19; Z53.29 Procedure and treatment not carried out because of patient's decision for other reasons; I25.10 Atherosclerotic heart disease of native coronary artery without angina pectoris; G47.30 Sleep apnea, unspecified; I34.0 Nonrheumatic mitral (valve) insufficiency; J44.9 Chronic obstructive pulmonary disease, unspecified; Z72.0 Tobacco use; Z86.16 Personal history of COVID-19; Z99.81 Dependence on supplemental oxygen; Z71.6 Tobacco abuse counseling; Z88.5 Allergy status to narcotic agent; Z88.8 Allergy status to other drugs, medicaments and biological substances
CPT/HCPCS: 36415; 36600; 93017; 99285; J3490; J7613; J7626; 71045; 78452; 80048; 82040; 82803; 83880; 84443; 84484; 85025; 93005; 93306; 93458; 94640; 99156; C1760; C1769; C1894; G0378; J0583; J1644; J1650; J1940; J2250; J2785; J3010; U0005; A9502; C9898; J2060; Q9967; U0003

== ENCOUNTER 2020-12-07 14:07 | Emergency (ER) | payer MEDICAID ==
[~2020-12-07] VITALS: Ht 160 cm; Wt 68.3 kg
[~2020-12-07 14:07] MED LIST changes: +GABA300C PO; +OMEP20CA20 PO
[2020-12-07 15:08] LABS: BASOPHILS % (AUTO) 1 % (0-1); EOSINOPHILS % (AUTO) 1 % (1-7); LYMPHOCYTES % (AUTO) 25 % (22-44); MEAN CORPUSCULAR HEMOGLOBIN 27.4 pg (27.0-34.8); MEAN CORPUSCULAR HGB CONC 32.5 g/dL (32.4-35.8); MEAN PLATELET VOLUME 8.3 fL (7.4-10.4); MONOCYTES % (AUTO) 13 % (2-9); NEUTROPHILS % (AUTO) 61 % (42-75); PLATELET COUNT 201 x10^3/uL (130-400); RED BLOOD COUNT 5.47 x10^6/uL (3.82-5.3)
[2020-12-07 15:17] LABS: ALBUMIN 3.5 g/dL (3.4-5.0); ANION GAP 6 mmol/L (5-15); CALCIUM 9.2 mg/dL (8.5-10.1); CHLORIDE 107 mmol/L (98-107)
[2020-12-07 15:22] LABS: ALANINE AMINOTRANSFERASE 76 U/L (12-78); ALKALINE PHOSPHATASE 120 U/L (45-117); BILIRUBIN,TOTAL 0.8 mg/dL (0.2-1.0); CREATININE 0.75 mg/dL (0.55-1.02); TOTAL PROTEIN 7.8 g/dL (6.4-8.2); TROPONIN I < 0.015 ng/mL (0.000-0.045)
--- NOTE | 2020-12-07 15:28 | NUR ---
PT WC'D TO ROOM 17 W/ C/O GEN WEAKNESS. PER SISTER PT "IS NOT FEELING WELL SO I BROUGHT HER IN". PT STATES SHE HAS HAD CP AND WAS ADMITTED FOR 5 DAYS FOR CHF AND LEFT AMA 2 DAYS AGO. PT RESTING ON GURNEY. NADN. MONITORS APPLIED. VSS. WARM BLANKET PROVIDED. CALL LIGHT IN REACH.
--- NOTE | 2020-12-07 17:00 | NUR ---
Break rn- pt resting in bed, call light in reach
[2020-12-07 17:18] VITALS: BP 107/62
--- NOTE | 2020-12-07 17:19 | NUR ---
PT RESTING ON GURNEY. NADN. LAN.
[2020-12-07] MEDS ORDERED: ALBUTEROL/IPRATROPIUM 2.5MG/0.5MG, 3 ML ONE (17:44)
[2020-12-07] MEDS ORDERED: ALBUTEROL/IPRATROPIUM 2.5MG/0.5MG, 3 ML NEB ONE (18:00)
== END 2020-12-07 18:21 | disposition home or self-care (01) ==
LOC: ED 16:33
DX: R07.89 Other chest pain (principal); I11.0 Hypertensive heart disease with heart failure; I50.9 Heart failure, unspecified; J44.9 Chronic obstructive pulmonary disease, unspecified
CPT/HCPCS: 36415; 71045; 80053; 83880; 84484; 85025; 93005; 94640